=== PATIENT | female | born 1985 | race Caucasian/White ===

== ENCOUNTER 2017-11-11 08:02 | Emergency (ER) | payer SELFPAY ==
[~2017-11-11] VITALS: Ht 160 cm; Wt 65.0 kg
[2017-11-11] MEDS ORDERED: LEVO88TA43 PO (08:22)
[2017-11-11] MEDS ORDERED: IBUPROFEN 200 MG TABLET ONE (08:24)
[2017-11-11] MEDS ORDERED: IBUPROFEN 200 MG TABLET PO ONE (08:30)
[2017-11-11 10:43] VITALS: BP 120/72
== END 2017-11-11 10:46 | disposition home or self-care (01) ==
LOC: ED 09:30
DX: S93.492A Sprain of other ligament of left ankle, initial encounter (principal); S93.432A Sprain of tibiofibular ligament of left ankle, initial encounter; E03.9 Hypothyroidism, unspecified; X50.1XXA Overexertion from prolonged static or awkward postures, initial encounter; Y93.89 Activity, other specified; Y99.8 Other external cause status; Y92.328 Other athletic field as the place of occurrence of the external cause
CPT/HCPCS: 29515; 99284

== ENCOUNTER 2017-11-27 11:39 | Emergency (ER) | payer SELFPAY ==
[~2017-11-27] VITALS: Ht 160 cm; Wt 65.0 kg
[~2017-11-27 11:39] MED LIST: LEVO88TA43 PO
[2017-11-27 11:43] VITALS: BP 123/85
== END 2017-11-27 14:15 | disposition home or self-care (01) ==
LOC: ED 14:06
DX: G43.109 Migraine with aura, not intractable, without status migrainosus (principal); E03.9 Hypothyroidism, unspecified
CPT/HCPCS: 70450; 93005; 99284